=== PATIENT | male | born 1945 | race Caucasian/White ===

== ENCOUNTER 2021-01-02 09:54 | Emergency (ER) | payer MEDICARE, SELFPAY ==
[2021-01-02] VITALS (12 sets, daily range): BP systolic 133–160; BP diastolic 71–90; PULSE 90–114; RESP 15–21; TEMP 36.9; O2SAT 98–100
--- NOTE | ~2021-01-02 | CT_ITS ---
EXAMINATION:CT diagnostic chest wo con DATE: 01/02/2021 13:36 INDICATION: Hepatocellular carcinoma. TECHNIQUE: Computed tomography (CT) of the chest was performed without intravenous contrast. Automate d exposure control and iterative reconstruction technique were employed. The dose-length product (DLP ) was 204.86 mGy-cm. COMPARISON: CT abdomen and pelvis 01/02/2021, chest CT 06/17/2013 FINDINGS: There is moderate emphysema. 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 There is mild dependent atelectasis bilaterally. There are small pleural effusions. The re is mild mediastinal lymphadenopathy. For example, there is a 15 x 10 mm lymph node in left superio r mediastinum. The heart size is normal. There are coronary artery calcifications. No pericardial eff usion. There is a small volume of ascites. There is a large ill-defined mass in the liver better seen on today's postcontrast CT. There is levoscoliosis of upper thoracic spine. There is mild thoracic s pondylosis. IMPRESSION: 1. Large ill-defined mass in the liver better seen on today's postcontrast CT, most likely hepatocell ular carcinoma. 2. Moderate emphysema. 3. Small pleural effusions. 4. Mild mediastinal lymphadenopathy, which may be reactive or less likely metastatic disease. Reviewed, dictated and finalized at location A. IMPRESSION: 1. Large ill-defined mass in the liver better seen on today's postcontrast CT, most likely hepatocellular carcinoma. 2. Moderate emphysema. 3. Small pleural effusions. 4. Mild mediastinal lymphadenopathy, which may be reactive or less likely metas tatic disease.
--- NOTE | ~2021-01-02 | XR_ITS ---
EXAMINATION: XR chest 2V DATE: 01/02/2021 11:25 INDICATION: Shortness of breath. TECHNIQUE: Frontal and lateral views of the chest were obtained. COMPARISON: CT abdomen and pelvis 01/02/2021 FINDINGS: There are small pleural effusions. There is mild atelectasis at left lung base. No pneumoth orax. Cardiomegaly is noted. IMPRESSION: 1. Small pleural effusions. 2. Cardiomegaly. Reviewed, dictated and finalized at location A.
--- NOTE | ~2021-01-02 | CT_ITS ---
EXAMINATION: CT abdomen pelvis w con EXAM DATE: 01/02/2021 11:08 INDICATION: Fall From 9ft Landing On Lt Side, bruising TO LLQ, shortness of breath. TECHNIQUE: Spiral CT of the abdomen and pelvis was performed following intravenous injection of 100 m L Omnipaque 350. Axial, coronal and sagittal images of the abdomen and pelvis were reviewed. The do se-length product (DLP) for this examination was 377.49 mGy-cm. The exposure was tailored according to patient size (auto mA exposure control), and iterative reconstruction (ASIR) was used as additiona l dose reduction technique. Comparison is made to prior examination from 06/17/2013. FINDINGS: No evidence of acute solid organ injury. Interval development of hepatic steatosis, and a large liver mass involving the right and left liver lobes, with central hypodensity which could be ne crosis or scar, region measuring about 15 cm. There are 3 small liver masses measuring about 1.5 cm i n the right liver lobe. Could be primary hepatocellular cancer given size and appearance, but other h istology including metastatic disease also possible. Consider ultrasound-guided biopsy. There is smal l amount of ascites. Gallbladder is unremarkable. No biliary obstruction. Spleen, pancreas, adrenal glands are unremarkab le. There are renal lesions consistent with cysts.Portal and splenic veins are patent. Kidneys enhan ce symmetrically. There is no hydronephrosis. The prostate is unremarkable. Some diffuse bladder wall thickening, could indicate chronic cystitis. Acute cystitis not excludable. There is no retrope ritoneal or pelvic lymphadenopathy. There is aneurysmal dilation of the midabdominal aorta just below the renal arteries up to 4.0 cm. Th ere is moderate aortic arteriosclerotic disease. 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 There is small left inguinal fat-containin g hernia. The appendix is not positively visualized. There is no pericecal inflammatory change to suggest appe ndicitis. The stomach and small bowel are unremarkable. There is expected amount of colonic stool. No free intraperitoneal gas. Heart is normal in size. There are small pleural effusions. There is 5 mm nodule in the left lower lobe, probably granuloma present on prior study. The lung bases are unr emarkable. There are no osteoblastic or osteolytic lesions identified. Mild to moderate lumbar dext roscoliosis. There are no acute fractures identified. IMPRESSION: 1. Development of large liver mass which could be hepatocellular carcinoma, but there are 3 masses l esions as well. Consider ultrasound-guided biopsy. 2. Small amount of ascites. 3. Mid abdominal aortic aneurysm up to 4 cm. 4. Mild diffuse bladder wall thickening, cystitis which could be chronic. 5. Small left inguinal fat-containing hernia. Reviewed, dictated and finalized at location B. IMPRESSION: 1. Development of large liver mass which could be hepatocellular carcinoma, bu t there are 3 masses lesions as well. Consider ultrasound-guided biopsy. 2. Small amount of ascites. 3. Mid abdominal aortic aneurysm up to 4 cm. 4. Mild diffuse bladder wall thickening, cystitis which could be chronic. 5. Small left inguinal fat-containing hernia.
--- NOTE | 2021-01-02 10:03 | ECG_ITS ---
Measurements Intervals [place] Rate: 105 P: 72 CO: 132 QRS: -50 QRSD: 112 T: 71 QT: 325 QTc: 430 Interpretive Statements SINUS TACHYCARDIA POSSIBLE LEFT ATRIAL ENLARGEMENT LEFT AXIS DEVIATION INTRAVENTRICULAR CONDUCTION DELAY BORDERLINE R WAVE PROGRESSION, ANTERIOR LEADS BORDERLINE ST-T WAVE ABNORMALITY- HIGH LATERAL LEADS BASELINE ARTIFACT- V3-V6 ABNORMAL ECG Electronically Signed On 01-02-2021 11:18:48 CDT by Austin Joy D.O.
[2021-01-02 10:28] LABS: Basophils Absolute Auto 0.1 K/mm3 (0.0-0.1); Basophils Percent Auto 0.7 % (0.2-1.2); Eosinophils Absolute Auto 0.3 K/mm3 (0-0.3); Eosinophils Percent Auto 3.2 % (0-4.4); Hemoglobin 12.3 g/dL (14.0-18.0); Immature Granulocyte Absolute 0.04 K/mm3 (0.00-0.031); Immature Granulocyte Percent A 0.4 % (0-0.5); Lymphocytes Absolute Auto 1.84 K/mm3 (0.9-3.2); Lymphocytes Percent Auto 19.6 % (18.3-44.2); Mean Corpuscular HGB Conc 33.2 g/dl (32-36); Mean Corpuscular Hemoglobin 30.9 pg (26-34); Mean Platelet Volume 9.1 fl (7.4-10.4); Monocytes Absolute Auto 0.9 K/mm3 (0.1-0.6); Monocytes Percent Auto 9.4 % (2.6-8.5); Neutrophils Absolute Auto 6.3 K/mm3 (1.3-6.7); Neutrophils Percent Auto 66.7 % (45.5-73.1); Platelet Count Result 321 k/mm3 (150-375); Red Blood Count 3.98 M/mm3 (4.6-6.20); Red Cell Distribution Width 15.1 % (11.5-14.5); White Blood Count 9.4 K/mm3 (4.5-10.0)
--- NOTE | 2021-01-02 10:31 | PC.NURSE ---
Pt states he fell off a grain cart on , pt presents with left side abd. bruising, denies hiting head,pt thought he would feel better with time but has not felt Better, with increased pain, and has SOB, pt A&Ox4,ekg labs complete
[2021-01-02] MEDS: SODIUM CHLORIDE 0.9% IV 1,000 ML 999 ML IV CONT (10:38)
[2021-01-02 10:39] LABS: Alanine Aminotransferase 82 U/L (4-50); Albumin Level 3.7 g/dL (3.5-5.1); Alkaline Phosphatase 200 U/L (38-126); Anion Gap 12 mmol/L (8-16); Aspartate Amino Transferase 111 U/L (17-59); Bilirubin,Total 1.1 mg/dL (0.2-1.3); Blood Urea Nitrogen 21 mg/dL (9-20); Calcium 8.7 mg/dL (8.4-10.2); Carbon Dioxide 17 mmol/L (22-30); Chloride 108 mmol/L (98-107); Estimated CRCL calculation 43 ml/min; Estimated Glomerular Filt Rate 54; Glucose 115 mg/dL (65-110); Sodium 137 mmol/L (137-145)
[2021-01-02 10:53] LABS: Prothrombin Time 13.4 Seconds (11.1-14.7)
[2021-01-02 10:54] LABS: Partial Thromboplastin Time 26.6 SECONDS (22.3-36.8)
--- NOTE | 2021-01-02 11:20 | PC.NURSE ---
Pt back from CT scan
--- NOTE | 2021-01-02 11:59 | ED.GENADULT ---
HPI - General Adult General Chief complaint: Shortness of Breath/Dyspnea Stated complaint: sob Time Seen by Provider: 01/02/21 10:02 History of Present Illness HPI narrative: Patient is a 75-year-old male who presents ER status post fall 4 days ago. He was standing on his grain wagon when he fell. He struck his left abdominal wall on the [place] again as he fell 9 feet. He did not injure himself when he struck the ground. He did not strike his head or lose consciousness. He takes Plavix due to the fact that he has had a femoropopliteal bypass in the past. He came in to be evaluated because he has a bruise along the left side of his abdomen. Occasionally feels like he has rapid shallow breathing. No chest pain or chest pressure. No nausea/vomiting. No dizziness when going from sitting to standing. Related Data Allergies Allergy/AdvReac Type Severity Reaction Status Date / Time No Known Allergies Allergy Mild Verified 01/24/12 10:44 Review of Systems Review of Systems: All systems reviewed & are unremarkable except as noted in HPI and below Constitutional: Constitutional: Denies chills, Denies fever(s) and Denies weakness ENT: Denies nasal congestion and Denies sore throat Cardiovascular: Cardiovascular: Denies chest pain, Denies rapid heart rate and Denies radiating jaw, neck or arm pain Respiratory: Respiratory: Denies cough, Reports dyspnea and Denies wheezing Gastrointestinal: Gastrointestinal: Reports abdominal pain, Reports constipation, Denies diarrhea, Denies nausea and Denies vomiting Genitourinary: Genitourinary: Denies hematuria and Denies dysuria PMFSH Past Medical History Medical History (Updated 01/02/21 @ 14:45 by Glenn Marin MD) Healthy adult male Surgical History Surgical History (Updated 01/02/21 @ 14:28 by Glenn Marin MD) History of femoropopliteal bypass Social History Social History (Updated 01/02/21 @ 14:29 by Glenn Marin MD) Smoking status: Current every day smoker Exam Narrative: GENERAL: Well-appearing, well-nourished, and in no acute distress. HEAD: Normocephalic, atraumatic. ENT: Mucous membranes moist. CHEST: Clear to auscultation. No respiratory distress. HEART: Tachycardic and regular. Normal peripheral pulses. ABDOMEN: Soft, nontender, hepatomegaly, nondistended, large bruising to the left upper quadrant of the abdomen that spares the rib cage. EXTREMITIES: Normal range of motion. No edema. SKIN: Warm, dry, no rash. NEURO: Alert and oriented x3. PSYCH: Normal mood and affect. Course Course Emergency Course: Discussed with Dr. Watt. Add alphafetoprotein. Needs US liver bx. Unable to preform until off plavix for 5 days. Oncology will arrange this outpatient. Vital Signs Vital signs: Vital Signs Temperature 98.4 F 01/02/21 09:58 Pulse Rate 114 H 01/02/21 09:58 Respiratory Rate 16 01/02/21 09:58 Blood Pressure 160/89 H 01/02/21 09:58 Pulse Oximetry 100 01/02/21 09:58 Temperature 98.4 F 01/02/21 09:58 Pulse Rate 100 01/02/21 10:34 Respiratory Rate 15 01/02/21 10:34 Blood Pressure 150/81 H 01/02/21 10:34 Pulse Oximetry 98 01/02/21 10:34 Medical Decision Making Vital Signs Vital Signs: Vital Signs Temperature 98.4 F 01/02/21 09:58 Pulse Rate 114 H 01/02/21 09:58 Respiratory Rate 16 01/02/21 09:58 Blood Pressure 160/89 H 01/02/21 09:58 Pulse Oximetry 100 01/02/21 09:58 Temperature 98.4 F 01/02/21 09:58 Pulse Rate 100 01/02/21 10:34 Respiratory Rate 15 01/02/21 10:34 Blood Pressure 150/81 H 01/02/21 10:34 Pulse Oximetry 98 01/02/21 10:34 Lab Data Result diagrams: 01/02/21 10:21 01/02/21 10:21 Labs: Lab Results 01/02/21 01/02/21 01/02/21 Range/Units 10:21 10:21 10:21 WBC 9.4 (4.5-10.0) K/mm3 RBC 3.98 L (4.6-6.20) M/mm3 Hgb 12.3 L (14.0-18.0) g/dL Hct 37.0 L (42.0-52.0) % MCV 93.0 (80-100) fl MCH 3
--- NOTE | 2021-01-02 14:36 | PC.NURSE ---
Ultrasound states that since pt takes plavix he will not be eligible for a liver biopsy until 5 days of no plavix, Dr. Marin notified.
== END 2021-01-02 15:20 | disposition home or self-care (01) ==
PROVIDERS: Emergency Provider Emergency Medicine
DX: S30.1XXA Contusion of abdominal wall, initial encounter (principal); R16.0 Hepatomegaly, not elsewhere classified; F17.200 Nicotine dependence, unspecified, uncomplicated; Z79.02 Long term (current) use of antithrombotics/antiplatelets; Z95.1 Presence of aortocoronary bypass graft; R00.0 Tachycardia, unspecified; R94.31 Abnormal electrocardiogram [ECG] [EKG]; I45.9 Conduction disorder, unspecified; K40.90 Unilateral inguinal hernia, without obstruction or gangrene, not specified as recurrent; I71.4 Abdominal aortic aneurysm, without rupture; R93.41 Abnormal radiologic findings on diagnostic imaging of renal pelvis, ureter, or bladder; W30.89XA Contact with other specified agricultural machinery, initial encounter
CPT/HCPCS: 36415; 71046; 71250; 74177; 80053; 82105; 85025; 85610; 85730; 93005; 96360; 99284; J7030; Q9967

== ENCOUNTER 2021-01-20 11:54 | Outpatient (CLI) | payer MEDICARE, SELFPAY ==
--- NOTE | ~2021-01-20 | MR_ITS ---
EXAMINATION: MR abdomen wo/w con INDICATION: Hepatocellular adenocarcinoma TECHNIQUE: Coronal SSFSE ARC, WATER:coronal LAVA-FLEX, Coronal 2D FIESTA FatSat, Axial SSFSE BH ARC, Axial 3D DualEcho BH, Axial SSFSE-IR, Axial DWI b=500, Axial 2D FIESTA FatSat, pre and dynamic postco ntrast Axial LAVA ARC, postcontrast Coronal In and Opposed phase LAVA FLEX COMPARISON: CT, 01/02/2021 CONTRAST: Multihance, 14 cc FINDINGS: There are small pleural effusions, right greater than left. Cardiomegaly is noted. There is an approximately 16.1 x 12.0 cm mass involving much of liver segments Dave and VIII. The mass demonst rates heterogeneous T1 and T2 signal intensity, restricted diffusion, and progressive enhancement wit h contrast. The mass appears to involve the anterior division of the right portal vein in the middle hepatic vein. There are two arterial enhancing masses in liver segment which measure 1.7 x 1.2 cm and 1.7 x 1.0 cm. There is a3.6 cm fusiform infrarenal abdominal aortic aneurysm. The spleen, pancrea s, gallbladder, and adrenal glands are normal. Cysts of the kidneys measure up to2.6 cm on the left. There is a small volume of abdominal ascites. There are no dilated loops of bowel. No pathologically enlarged abdominal lymph nodes are identified. IMPRESSION: 1. Large liver mass consistent with primary malignancy of the liver, possibly cholangiocarcinoma or h epatocellular carcinoma. Ultrasound-guided biopsy is recommended. 2. Additional small masses of liver segment likely reflect metastases. 3. Fusiform infrarenal abdominal aortic aneurysm. Reviewed, dictated and finalized at location B. OR MARKETING DATA ANALYST IMPRESSION: 1. Large liver mass consistent with primary malignancy of the liver, possibly c holangiocarcinoma or hepatocellular carcinoma. Ultrasound-guided biopsy is syed mmended. 2. Additional small masses of liver segment likely reflect metastases. 3. Fusiform infrarenal abdominal aortic aneurysm.
[2021-01-20 12:22] LABS: Estimated Glomerular Filt Rate 46
== END 2021-01-20 11:55 | disposition home or self-care (01) ==
PROVIDERS: Visit Provider Internal Medicine Hematology & Oncology
DX: C22.0 Liver cell carcinoma (principal); I71.4 Abdominal aortic aneurysm, without rupture; R16.0 Hepatomegaly, not elsewhere classified
CPT/HCPCS: 74183; A9577

== ENCOUNTER 2021-01-23 07:46 | Emergency (ER) | payer MEDICARE, SELFPAY ==
[2021-01-23] VITALS (17 sets, daily range): BP systolic 135–149; BP diastolic 69–94; PULSE 103–121; RESP 18–28; TEMP 36.6; O2SAT 94–100
--- NOTE | ~2021-01-23 | XR_ITS ---
EXAMINATION: XR chest 2V EXAM DATE: 01/23/2021 08:15 INDICATION: Shortness of breath, wheezing TECHNIQUE: Frontal and lateral projections of the chest obtained and reviewed. Comparison is made to prior examination from 04/04/2020. FINDINGS: There is aortic arteriosclerosis. Small bilateral pleural effusions. No confluent consolida tion, pneumothorax or pleural effusion suspected. Cardiomediastinal silhouette is normal. There are n o osseous abnormalities identified. IMPRESSION: Small pleural effusions. Reviewed, dictated and finalized at location B. MATIC HEAD SAWYER IMPRESSION: Small pleural effusions.
--- NOTE | ~2021-01-23 | CT_ITS ---
EXAMINATION: CTA chest PE protocol DATE: 01/23/2021 09:13 INDICATION: Wheezing. TECHNIQUE: Computed tomography angiography (CTA) of the chest was performed with 100 mL Omnipaque-350 intravenous contrast timed to evaluate the pulmonary arteries. Coronal maximum intensity projection 3D-reconstructions were created by the technologist. Automated exposure control and iterative reconst ruction technique were employed. The dose-length product was 411.13 mGy-cm. COMPARISON: Chest CT 01/02/2021 FINDINGS: There is moderate emphysema. There are small pleural effusions. There is mild dependent ate lectasis bilaterally. Cardiomegaly is noted. There are coronary artery calcifications. There is a sma ll pericardial effusion. There is no pulmonary embolus. There is a 15 cm mass in the liver. There is a small volume of ascites in the visualized portion of the upper abdomen. There is mild thoracic spon dylosis. IMPRESSION: 1. No pulmonary embolus. Sensitivity and specificity are moderately decreased by motion artifact. 2. Moderate emphysema. 3. Small pleural effusions. 4. Small pericardial effusion. 5. Small volume of ascites. 6. 15 cm liver mass, most likely hepatocellular carcinoma. Reviewed, dictated and finalized at location A. ERS ADVISER IMPRESSION: 1. No pulmonary embolus. Sensitivity and specificity are moderately decreased b y motion artifact. 2. Moderate emphysema. 3. Small pleural effusions. 4. Small pericardial effusion. 5. Small volume of ascites. 6. 15 cm liver mass, most likely hepatocellular carcinoma.
--- NOTE | 2021-01-23 07:55 | ECG_ITS ---
Measurements Intervals [place] Rate: 120 P: 66 SC: 100 QRS: -64 QRSD: 107 T: 78 QT: 297 QTc: 421 Interpretive Statements SINUS TACHYCARDIA WITH SHORT SC INTERVAL LEFT ANTERIOR FASCICULAR BLOCK CANNOT RULE OUT SEPTAL INFARCT, AGE INDETERMINATE BORDERLINE ST-T WAVE ABNORMALITY- HIGH LATERAL LEADS BASELINE ARTIFACT- I, AVR, V4-V6 ABNORMAL ECG Electronically Signed On 01-23-2021 8:49:26 MAINTENANCE CONSTRUCTION HELPER by Austin Joy D.O.
--- NOTE | 2021-01-23 08:06 | ED.SOB ---
HPI - SOB/Dyspnea General Chief Complaint: Shortness of Breath/Dyspnea Stated Complaint: SOB Time Seen by Provider: 01/23/21 08:03 Source: patient, family and RN notes reviewed Mode of arrival: EMS Limitations: no limitations History of Present Illness HPI Narrative: Patient complaining of shortness of breath for a while, got worse over the last 3 weeks mainly after starting new medication Nexavar for liver cancer. Patient denies any fever, chills, nausea, vomiting, fully vaccinated for COVID-27 June 2020, history of hepatocellular carcinoma with mediastinal metastasis. Patient is a smoker, denies history of COPD or emphysema. Patient used to be on Plavix which is stopped 3 weeks ago for biopsy which never been done. Related Data Home Medications Medication Instructions Recorded Confirmed furosemide 01/23/21 potassium chloride meq PO 01/23/21 sorafenib [Nexavar] mg PO 01/23/21 Allergies Allergy/AdvReac Type Severity Reaction Status Date / Time No Known Allergies Allergy Mild Verified 01/23/21 08:12 Review of Systems Review of Systems: CONSTITUTIONAL: Denies fever, chills, or sweats. EYES: Denies visual changes, redness, or discharge. ENT: Denies rhinorrhea, congestion, sore throat, or otalgia. CARDIOVASCULAR: Denies chest pain, palpitations, or edema. RESPIRATORY: Denies cough or dyspnea. GASTROINTESTINAL: Denies abdominal pain, nausea, vomiting, or diarrhea. GENITOURINARY: Denies dysuria or hematuria. SKIN: Denies rash or itching. MUSCULOSKELETAL: Denies back pain, joint pain, or myalgia. NEUROLOGIC: Denies headache, numbness, or weakness. PSYCHIATRIC: Denies anxiety or depression. PMFSH Past Medical History Medical History Healthy adult male Surgical History Surgical History History of femoropopliteal bypass Social History Social History Smoking status: Current every day smoker Exam Narrative: General appearance: Well-developed, well-nourished Skin: Normal color Head: Normocephalic, nontraumatic Eyes: Clear conjunctiva ENT: Oropharynx normal, ears normal, nose normal Neck: Supple, nontender Chest and respiratory: Diminution of air entry bilaterally, diffuse scattered wheezing and rhonchi all over. Heart: Regular rate/rhythm Abdomen: Soft, moderate tenderness right abdomen, mild ascites, quiet bowel sounds Vascular: Normal peripheral pulses, normal capillary refill. Musculoskeletal: Normal range of motion, nontender back Neurologic: Alert and oriented ?3, MATERIALS BUYER is normal as tested, no gross motor deficit Course Course Emergency Course: Stable Vital Signs Vital signs: Vital Signs Temperature 36.6 C 01/23/21 07:56 Pulse Rate 116 H 01/23/21 07:56 Respiratory Rate 26 H 01/23/21 07:56 Blood Pressure 149/83 H 01/23/21 07:56 Pulse Oximetry 97 01/23/21 07:56 Temperature 36.6 C 01/23/21 07:56 Pulse Rate 106 H 01/23/21 12:10 Respiratory Rate 22 H 01/23/21 12:10 Blood Pressure 138/77 01/23/21 12:10 Pulse Oximetry 97 01/23/21 12:10 MDM - SOB/Dyspnea MDM Narrative Medical decision making narrative: Shortness of breath for 3 weeks. History of hepatocellular carcinoma with mediastinal metastasis. Differential diagnosis as below. Labs, blood gas on room air, CTA pulmonary rule out PE ordered Work-up did not show any significant finding to explain patient is wheezing. Patient is a smoker, COPD is a possibility. Patient will be discharged on prednisone and albuterol inhaler. Unable to get hold of Dr. Watt. Differential Diagnosis Differe
--- NOTE | 2021-01-23 08:16 | PC.NURSE ---
Pt returns from xray, per staff, when pt stood up in xray, became too short of breath to continue with exam. Pt brought back to room and returned to monitor car operator and continuous pulse ox. Audible wheezing stronger. Dr. Crouch made aware.
[2021-01-23 08:21] LABS: Basophils Percent Auto 0.3 % (0.2-1.2); Eosinophils Absolute Auto 0.3 K/mm3 (0-0.3); Eosinophils Percent Auto 1.8 % (0-4.4); Hematocrit 43.1 % (42.0-52.0); Hemoglobin 14.8 g/dL (14.0-18.0); Immature Granulocyte Absolute 0.12 K/mm3 (0.00-0.031); Immature Granulocyte Percent A 0.9 % (0-0.5); Lymphocytes Absolute Auto 1.65 K/mm3 (0.9-3.2); Lymphocytes Percent Auto 11.8 % (18.3-44.2); Mean Corpuscular HGB Conc 34.3 g/dl (32-36); Mean Corpuscular Hemoglobin 30.5 pg (26-34); Mean Corpuscular Volume 88.7 fl (80-100); Mean Platelet Volume 9.9 fl (7.4-10.4); Monocytes Absolute Auto 1.1 K/mm3 (0.1-0.6); Monocytes Percent Auto 7.7 % (2.6-8.5); Neutrophils Absolute Auto 10.9 K/mm3 (1.3-6.7); Neutrophils Percent Auto 77.5 % (45.5-73.1); Platelet Count Result 247 k/mm3 (150-375); Red Blood Count 4.86 M/mm3 (4.6-6.20)
[2021-01-23 08:31] LABS: Anion Gap 13 mmol/L (8-16); Blood Urea Nitrogen 35 mg/dL (9-20); Calcium 8.8 mg/dL (8.4-10.2); Carbon Dioxide 21 mmol/L (22-30); Chloride 102 mmol/L (98-107); Estimated CRCL calculation 45 ml/min; Estimated Glomerular Filt Rate 54; Glucose 109 mg/dL (65-110); Sodium 136 mmol/L (137-145)
[2021-01-23 08:55] LABS: Alanine Aminotransferase 129 U/L (4-50); Albumin Level 3.8 g/dL (3.5-5.1); Alkaline Phosphatase 238 U/L (38-126); Aspartate Amino Transferase 279 U/L (17-59); Bilirubin,Total 2.9 mg/dL (0.2-1.3)
[2021-01-23 09:04] LABS: NT Pro B Type Natriuretic Pept > 35000 pg/mL (5-100)
[2021-01-23] MEDS: ALBUTEROL SULFATE NEB 2.5 MG/0.5 ML INH 5 MG INHALATION (09:08)
[2021-01-23] MEDS: IPRATROPIUM BR 0.02% INH SOLN 0.5 MG/2.5 ML VIAL INHALATION (09:08)
[2021-01-23] MEDS: predniSONE 20 MG TABLET 60 MG PO (09:26)
[2021-01-23 09:34] LABS: Alveolar/Arterial O2 Gradient 31.9 mmHg; Base Excess ABG -1.4 mEq/l (+/-2.0); Device ROOM AIR; Fractional Inspired Oxygen 21 %; HCO3 ABG 21.7 mEq/l (22.0-26.0); Modified Allen's Test Pass; Oxygen Content ABG 18.7 %vol (16.0-22.0); Oxygen Saturation ABG 96.3 % (95.0-100.0); Oxyhemoglobin 94.6 % THb (90.0-100.0); PCO2 ABG 32.2 mmHg (35.0-45.0); PO2 ABG 79.3 mmHg (80.0-100.0); PO2 FiO2 Ratio Arterial Blood 3.78 %; Site Drawn RIGHT RADIAL; pH ABG 7.447 (7.350-7.450)
--- NOTE | 2021-01-23 11:18 | PC.NURSE ---
Bedside report to EMERSON Marte, to continue care. Pt resting comfortably on stretcher, denies needs at present.
== END 2021-01-23 13:00 | disposition home or self-care (01) ==
PROVIDERS: Emergency Provider Emergency Medicine; PCP Internal Medicine Hematology & Oncology
DX: J98.01 Acute bronchospasm (principal); C22.0 Liver cell carcinoma; C78.1 Secondary malignant neoplasm of mediastinum; F17.200 Nicotine dependence, unspecified, uncomplicated
CPT/HCPCS: 36415; 36600; 71046; 71275; 80048; 80076; 82805; 83880; 85025; 93005; 94640; 99284; J7512; Q9967

== ENCOUNTER 2021-02-07 08:12 | Outpatient (CLI) | payer MEDICARE, SELFPAY ==
--- NOTE | ~2021-02-07 | US_ITS ---
EXAMINATION: US paracentesis abd w/image DATE: 02/07/2021 09:53 INDICATION: Ascites. TECHNIQUE: The procedure and its risks and benefits were discussed with the patient. Potential risks discussed included bleeding and infection. The skin was prepped and draped in sterile fashion. 1% lid ocaine was used for local anesthesia. Under ultrasound guidance, a 5 Fr catheter with trochar was adv anced into the ascites in the left lower quadrant. Fluid was aspirated into vacuum bottles. The rafy ter was removed, and a dressing was applied. There were no immediate complications. FINDINGS: Ultrasound images demonstrate ascites and the catheter within the fluid. IMPRESSION: 1. Successful ultrasound-guided paracentesis yielding 1450 mL of clear yellow fluid. Reviewed, dictated and finalized at location A. NNER
[2021-02-07 13:15] LABS: Appearance Peritoneal Fluid Hazy (Clear); Color Peritoneal Fluid Yellow (Colorless); Lymphocytes Peritoneal Fluid 59 %; Macrophages Peritoneal Fluid 14 %; Mesothelial Cells Peritoneal Fluid 7 %; Monocytes Peritoneal Fluid 8 %; Neutrophils Peritoneal Fluid 12 % (0-25); Source Peritoneal Fluid Peritoneal Fluid
== END 2021-02-07 08:13 | disposition home or self-care (01) ==
PROVIDERS: PCP Internal Medicine Hematology & Oncology; Visit Provider Internal Medicine Hematology & Oncology
DX: C22.0 Liver cell carcinoma (principal); R18.0 Malignant ascites
CPT/HCPCS: 49083; 87015; 87070; 87075; 87102; 87116; 87205; 87206; 89051

== ENCOUNTER 2021-03-28 13:43 | Outpatient (CLI) | payer MEDICARE, SELFPAY ==
[2021-03-28 14:09] LABS: Basophils Absolute Auto 0.1 K/mm3 (0.0-0.1); Basophils Percent Auto 1.5 % (0.2-1.2); Eosinophils Absolute Auto 0.9 K/mm3 (0-0.3); Eosinophils Percent Auto 9.1 % (0-4.4); Hematocrit 39.3 % (42.0-52.0); Hemoglobin 12.9 g/dL (14.0-18.0); Immature Granulocyte Absolute 0.12 K/mm3 (0.00-0.031); Immature Granulocyte Percent A 1.2 % (0-0.5); Lymphocytes Percent Auto 14.5 % (18.3-44.2); Mean Corpuscular HGB Conc 32.8 g/dl (32-36); Mean Corpuscular Hemoglobin 28.9 pg (26-34); Mean Corpuscular Volume 88.1 fl (80-100); Mean Platelet Volume 9.7 fl (7.4-10.4); Monocytes Absolute Auto 1.1 K/mm3 (0.1-0.6); Monocytes Percent Auto 11.5 % (2.6-8.5); Neutrophils Percent Auto 62.2 % (45.5-73.1); Platelet Count Result 352 k/mm3 (150-375); Red Blood Count 4.46 M/mm3 (4.6-6.20); Red Cell Distribution Width 22.6 % (11.5-14.5); White Blood Count 9.6 K/mm3 (4.5-10.0)
[2021-03-28 16:24] LABS: Alanine Aminotransferase 111 U/L (4-50); Albumin Level 3.8 g/dL (3.5-5.1); Alkaline Phosphatase 355 U/L (38-126); Anion Gap 11 mmol/L (8-16); Aspartate Amino Transferase 178 U/L (17-59); Bilirubin,Total 2.5 mg/dL (0.2-1.3); Blood Urea Nitrogen 50 mg/dL (9-20); Calcium 9.4 mg/dL (8.4-10.2); Carbon Dioxide 26 mmol/L (22-30); Chloride 105 mmol/L (98-107); Estimated Glomerular Filt Rate 59; Glucose 99 mg/dL (65-110); Potassium 4.5 mmol/L (3.4-5.0); Sodium 142 mmol/L (137-145)
== END 2021-03-28 13:44 | disposition home or self-care (01) ==
PROVIDERS: PCP Internal Medicine Hematology & Oncology; Visit Provider Internal Medicine Hematology & Oncology
DX: C22.0 Liver cell carcinoma (principal)
CPT/HCPCS: 36415; 80053; 82105; 85025

== ENCOUNTER 2021-04-21 08:33 | Outpatient (CLI) | payer MEDICARE, SELFPAY ==
--- NOTE | ~2021-04-21 | US_ITS ---
EXAMINATION: US paracentesis abd w/image DATE: 04/21/2021 10:37 INDICATION: Ascites. TECHNIQUE: The procedure and its risks and benefits were discussed with the patient. Potential risks discussed included bleeding and infection. The skin was prepped and draped in sterile fashion. 1% lid ocaine was used for local anesthesia. Under ultrasound guidance, a 5 Fr catheter with trochar was adv anced into the ascites in the left lower quadrant. Fluid was aspirated into vacuum bottles. The rafy ter was removed, and a dressing was applied. There were no immediate complications. FINDINGS: Ultrasound images demonstrate ascites and the catheter within the fluid. IMPRESSION: 1. Successful ultrasound-guided paracentesis yielding 1100 mL of clear bright yellow fluid. Reviewed, dictated and finalized at location A. NOPATHOLOGIST
[2021-04-21 08:53] LABS: Mean Platelet Volume 9.4 fl (7.4-10.4); Platelet Count Result 242 k/mm3 (150-375)
[2021-04-21 09:02] LABS: INR 1.3; Prothrombin Time 15.8 Seconds (11.1-14.7)
== END 2021-04-21 08:34 | disposition home or self-care (01) ==
PROVIDERS: Radiology Diagnostic Radiology; Visit Provider Internal Medicine Hematology & Oncology
DX: C22.8 Malignant neoplasm of liver, primary, unspecified as to type (principal); R18.0 Malignant ascites
CPT/HCPCS: 36415; 49083; 85049; 85610

== ENCOUNTER 2021-05-11 11:34 | Outpatient (CLI) | payer MEDICARE, SELFPAY ==
[2021-05-11 11:59] LABS: Basophils Absolute Auto 0.1 K/mm3 (0.0-0.1); Basophils Percent Auto 0.7 % (0.2-1.2); Eosinophils Absolute Auto 0.4 K/mm3 (0-0.3); Eosinophils Percent Auto 5.3 % (0-4.4); Hematocrit 40.3 % (42.0-52.0); Hemoglobin 12.5 g/dL (14.0-18.0); Immature Granulocyte Absolute 0.08 K/mm3 (0.00-0.031); Immature Granulocyte Percent A 1.1 % (0-0.5); Lymphocytes Absolute Auto 0.33 K/mm3 (0.9-3.2); Lymphocytes Percent Auto 4.4 % (18.3-44.2); Mean Corpuscular Hemoglobin 28.5 pg (26-34); Mean Corpuscular Volume 91.8 fl (80-100); Mean Platelet Volume 8.9 fl (7.4-10.4); Monocytes Absolute Auto 0.7 K/mm3 (0.1-0.6); Monocytes Percent Auto 9.7 % (2.6-8.5); Neutrophils Absolute Auto 5.9 K/mm3 (1.3-6.7); Neutrophils Percent Auto 78.8 % (45.5-73.1); Platelet Count Result 226 k/mm3 (150-375); Red Blood Count 4.39 M/mm3 (4.6-6.20); Red Cell Distribution Width 22.5 % (11.5-14.5); White Blood Count 7.5 K/mm3 (4.5-10.0)
[2021-05-11 12:16] LABS: Alanine Aminotransferase 58 U/L (4-50); Albumin Level 3.4 g/dL (3.5-5.1); Alkaline Phosphatase 259 U/L (38-126); Anion Gap 8 mmol/L (8-16); Aspartate Amino Transferase 106 U/L (17-59); Bilirubin,Total 2.9 mg/dL (0.2-1.3); Blood Urea Nitrogen 59 mg/dL (9-20); Calcium 8.2 mg/dL (8.4-10.2); Carbon Dioxide 22 mmol/L (22-30); Chloride 106 mmol/L (98-107); Estimated Glomerular Filt Rate > 60; Glucose 90 mg/dL (65-110); Potassium 4.6 mmol/L (3.4-5.0); Sodium 136 mmol/L (137-145)
[2021-05-17 16:33] LABS: Alpha Fetoprotein Tumor Marker 7288.3 ng/mL (<6.1)
== END 2021-05-11 11:35 | disposition home or self-care (01) ==
LOC: ANHLAB 11:36
PROVIDERS: Visit Provider Internal Medicine Hematology & Oncology
DX: C22.0 Liver cell carcinoma (principal)
CPT/HCPCS: 36415; 80053; 82105; 85025